=== PATIENT | female | born 1995 ===

== ENCOUNTER 2018-01-13 10:44 | Emergency (ER) | payer OTHER ==
[2018-01-13] MEDS ORDERED: Ondansetron ODT TAB* 4 MG PO ONE (13:12)
--- NOTE | 2018-01-13 13:23 | UC ---
Abdominal Pain Female HPI - HPI Summary HPI Summary: Onset last night of sharp, diffuse abdominal pain, nausea/vomiting/diarrhea. No fever. Arrived back from [place] the day before. Denies any unusual food. - History of Current Complaint Chief Complaint: UCGeneralIllness Stated Complaint: VOMITTING Time Seen by Provider: 01/13/18 13:02 Hx Obtained From: Patient Hx Last Menstrual Period: 12/26/17 Onset/Duration: Sudden Onset, Lasting Hours, Still Present Timing: Constant Severity Initially: Moderate Severity Currently: Moderate Pain Intensity: 8 Pain Scale Used: 0-10 Numeric Location: Diffuse Radiates: No Character: Cramping, Sharp Aggravating Factor(s): Food Alleviating Factor(s): Nothing Associated Signs and Symptoms: Positive: Decreased Appetite, Nausea, Vomiting, Diarrhea. Negative: Fever, Constipation, Blood in Stool, Urinary Symptoms Allergies/Adverse Reactions: Allergies Allergy/AdvReac Type Severity Reaction Status Date / Time No Known Allergies Allergy Verified 01/13/18 11:17 Home Medications: Home Medications Levonorgestrel (Iud) [Mirena IUD] 1 applic INTRAUTERI ONCE 01/13/18 [History Confirmed 01/13/18] PMH/Surg Hx/FS Hx/Imm Hx Previously Healthy: Yes - Surgical History Surgical History: None - Family History Known Family History: Negative: Hypertension - Social History Alcohol Use: Occasionally Substance Use Type: None Smoking Status (MU): Never Smoked Tobacco Review of Systems Constitutional: Fatigue Respiratory: Negative Cardiovascular: Negative Gastrointestinal: Abdominal Pain, Vomiting, Diarrhea, Nausea Genitourinary: Negative All Other Systems Reviewed And Are Negative: Yes Physical Exam Triage Information Reviewed: Yes Appearance: No Pain Distress, Well-Nourished, Ill-Appearing - MILD Vital Signs: Initial Vital Signs Temp 99.2 F 01/13/18 11:09 Pulse 84 01/13/18 11:09 Resp 18 01/13/18 11:09 BP 98/58 01/13/18 11:09 Pulse Ox 100 01/13/18 11:09 Eyes: Positive: Conjunctiva Clear ENT: Positive: Hearing grossly normal Neck: Positive: Supple, Nontender, No Lymphadenopathy Respiratory Exam: Normal Cardiovascular Exam: Normal Abdomen Description: Positive: Soft, Other: - DIFFUSE MILD TENDERNESS. Negative : CVA Tenderness (R), CVA Tenderness (L), Distended, Guarding Bowel Sounds: Positive: Present Musculoskeletal: Positive: No Edema Neurological: Positive: Alert Psychological: Positive: Age Appropriate Behavior Skin: Negative: rashes Abd Pain Female Course/Dx - Differential Dx/Diagnosis Provider Diagnoses: GASTROENTERITIS Discharge - Sign-Out/Discharge Documenting (check all that apply): Patient Departure All imaging exams completed and their final reports reviewed: No Studies - Discharge Plan Condition: Stable Disposition: HOME Prescriptions: Ondansetron ODT TAB* [Zofran Odt TAB*] 4 mg PO Q6H PRN #20 tab.odt PRN Reason: Nausea/Vomiting Patient Education Materials: Gastroenteritis (ED) Forms: *School Release Referrals: [facility] [Provider Group] - If Needed Additional Instructions: GASTROENTERITIS: You have gastroenteritis ("intestinal flu"). This disease is usually caused by a virus. There is no specific treatment. The disease will end by itself. For now, the main danger is dehydration. Give clear liquids. Examples include Pedialyte, Gatorade, clear broth, juices, flat sodas, and jello water. Medications may be prescribed by the physician for special cases. Once tolerated, the clear liquid diet may be supplemented with rice, cereal, toast, applesauce, or bananas. Call the physician or go to the hospital if vomiting increases or blood appears in the bowel movement or vomitus; if you fail to improve, or if signs of dehydration occur (tongue and mouth become dry, lethargy). ENSURE ADEQUATE HYDRATION. CLEAR LIQUIDS, BLAND DIET. AVOID CAFFEINE, DAIRY, GREASY, SPICY FOODS. ONCE YOU ARE TOLERATING CLEAR LIQUIDS YOU CAN ADVANCE TO SIMPLE, BLAND FOODS. - Billing Disposition and Condition Condition: STABLE Disposition: Home
[2018-01-13 13:33] VITALS: BP 121/63
== END 2018-01-13 13:40 | disposition home or self-care (01) ==
LOC: UCEAST 10:44
DX: K52.9 Noninfective gastroenteritis and colitis, unspecified (principal)
CPT/HCPCS: 84702; 99202; A9270-GY; G0463